=== PATIENT | female | born 1970 | race Native Hawaiian/Other Pacific Islander ===

== ENCOUNTER 2016-11-09 08:35 | Outpatient (CLI) | payer OTHER | END 2016-11-09 10:00 | disposition home or self-care (01) | LOC: MAMMO 08:35 | DX: Z12.31 Encounter for screening mammogram for malignant neoplasm of breast (principal) | CPT/HCPCS: G0202-TC ==

== ENCOUNTER 2019-03-18 08:24 | Outpatient (CLI) | payer OTHER | END 2019-03-18 21:50 | disposition home or self-care (01) | LOC: MAMMO 08:24 | DX: Z12.31 Encounter for screening mammogram for malignant neoplasm of breast (principal) ==

== ENCOUNTER 2020-04-18 14:03 | Outpatient (CLI) | payer OTHER | END 2020-04-18 20:45 | disposition home or self-care (01) | LOC: MAMMO 14:03 | PROVIDERS: ATTEND Family Medicine | DX: Z12.31 Encounter for screening mammogram for malignant neoplasm of breast (principal); Z13.820 Encounter for screening for osteoporosis ==

== ENCOUNTER 2021-08-21 13:57 | Outpatient (CLI) | payer OTHER | END 2021-08-21 18:55 | disposition home or self-care (01) | LOC: MAMMO 13:57 | PROVIDERS: ATTEND Family Medicine | DX: Z12.31 Encounter for screening mammogram for malignant neoplasm of breast (principal) ==